=== PATIENT | male | born 1975 | race African-American/Black ===

== ENCOUNTER 2019-01-19 09:55 | Emergency (ER) | payer OTHER ==
[~2019-01-19] VITALS: Ht 167.6 cm; Wt 76.7 kg
[2019-01-19 09:58] VITALS: Ht 167.6 cm; Wt 76.7 kg
[2019-01-19 10:28] LABS: BASOPHIL % 0.2 % (0-2); PLATELET COUNT 145 x10^3mcL (130-400); RED CELL DISTRIBUTION WIDTH 13.2 % (11.5-14.5)
[2019-01-19 10:38] LABS: CALCIUM 8.5 mg/dL (8.5-10.1); CARBON DIOXIDE 28.5 mmol/L (21-32); CREATININE SERUM 1.5 mg/dL (0.7-1.3); POTASSIUM SERUM 3.9 mmol/L (3.5-5.1)
[2019-01-19 12:01] VITALS: BP 98/63
== END 2019-01-19 12:20 | disposition home or self-care (01) ==
LOC: ED 09:55
PROVIDERS: Emergency Medicine
DX: J06.9 Acute upper respiratory infection, unspecified (principal)
CPT/HCPCS: J1885; J7030